=== PATIENT | female | born 1990 | race Caucasian/White ===

== ENCOUNTER 2022-06-07 21:40 | Inpatient (IN) | payer OTHER ==
[2022-06-07] MEDS ORDERED: OXYTOCIN 10 UNITS/ML VIAL IM ONE (21:47)
[2022-06-07] MEDS ORDERED: oxyCODONE HCL 5 MG TABLET PO PRN (22:21)
[2022-06-07] MEDS ORDERED: BENZOCAINE 28 GM HEMORRHOIDAL OINTMENT TP PRN (22:21)
[2022-06-07] MEDS ORDERED: IBUPROFEN 600 MG TABLET (FP) PO PRN (22:21)
[2022-06-07] MEDS ORDERED: METHYLERGONOVINE MALEATE 0.2 MG/1 ML AMP IM PRN (22:21)
[2022-06-07] MEDS ORDERED: WITCH HAZEL 50% (TUCKS) 40 PAD/JAR PAD TP PRN (22:21)
[2022-06-07] MEDS ORDERED: BENZOCAINE 20% 57 GM BOTTLE TP PRN (22:21)
[2022-06-07] MEDS ORDERED: ACETAMINOPHEN 325 MG TABLET (FP) PO PRN (22:21)
[2022-06-07] MEDS ORDERED: BISACODYL 10 MG SUPP.RECT RC PRN (22:21)
[2022-06-07] MEDS ORDERED: OXYTOCIN 20 UNITS in 0.9% NS 20 UNIT/1,000 ML INFUS.BAG IV SCH (22:30)
[2022-06-07 23:13] LABS: BASO % 0.2 % (0-2.0); EOS % 2.2 % (0-4.5); HEMATOCRIT 35.5 % (32.4-45.2); HEMOGLOBIN 11.8 GM/dL (10.7-15.3); MCH 29.9 pg (25.7-33.7); MCHC 33.1 g/dl (32.0-36.0); MEAN CELL VOLUME 90.2 fl (80-96); MONO % 4.2 % (3.8-10.2); NEUT % 77.4 % (42.8-82.8); PLATELET COUNT 144 10^3/uL (134-434); RBC 3.94 M/mm3 (3.60-5.2); RDW 13.4 % (11.6-15.6)
[2022-06-07 23:25] VITALS: BMI 28.1
[2022-06-07 23:31] LABS: CALCIUM 8.8 mg/dL (8.5-10.1)
[2022-06-07 23:35] LABS: CREATININE 0.7 mg/dL (0.55-1.3)
[2022-06-08] MEDS ORDERED: OXYTOCIN 10 UNITS/ML VIAL IM ONE (00:30)
[2022-06-08 07:41] LABS: BASO % 0.2 % (0-2.0); HEMATOCRIT 33.3 % (32.4-45.2); HEMOGLOBIN 11.1 GM/dL (10.7-15.3); MCH 29.5 pg (25.7-33.7); MCHC 33.2 g/dl (32.0-36.0); MEAN PLT VOLUME 9.7 fl (7.5-11.1); MONO % 4.3 % (3.8-10.2); NEUT % 84.5 % (42.8-82.8); PLATELET COUNT 133 10^3/uL (134-434); RBC 3.75 M/mm3 (3.60-5.2); RDW 13.3 % (11.6-15.6); WHITE BLOOD COUNT 15.4 K/mm3 (4.0-10.0)
[2022-06-08] MEDS: PRENATAL VITAMINS W/ FOLIC ACID TABLET (FP) PO SCH (09:36)
[2022-06-08 21:50] VITALS: RESP 16
[2022-06-08] MEDS ORDERED: SENNOSIDES/DOCUSATE COMBO (SENNA PLUS) TABLET (UD) PO PRN (22:00)
[2022-06-09 08:00] VITALS: BP 115/60; PULSE 55; TEMP 98
[2022-06-09] MEDS: PRENATAL VITAMINS W/ FOLIC ACID TABLET (FP) PO SCH (09:02)
== END 2022-06-09 15:15 | disposition home or self-care (01) | DRG 560 ==
LOC: JLDR 21:40 → J3W 06-08 00:20
PROVIDERS: ADMIT Specialist; ATTEND Specialist
PROC: 10E0XZZ Delivery of Products of Conception, External Approach (ICD-10-PCS; principal; 2022-06-07)
DX: O80 Encounter for full-term uncomplicated delivery (principal); Z3A.39 39 weeks gestation of pregnancy; Z37.0 Single live birth
CPT/HCPCS: 36415; 59409; 80048; 85025; 86780; 86850; 86900; 86901; C9803-CS; U0003; U0005